=== PATIENT | female | born 1995 | race Caucasian/White ===

== ENCOUNTER → 2016-12-18 | Outpatient (CLI) | payer OTHER | END | disposition home or self-care (01) | LOC: C.LAB 20:56 | DX: Z02.83 Encounter for blood-alcohol and blood-drug test (principal) ==

== ENCOUNTER 2019-11-23 00:30 | Inpatient (IN) ==
[2019-11-23] MEDS ORDERED: PENICILLIN G POTASSIUM 3 MU in DEXTROSE 5% 100 ML IV PRN (00:52)
[2019-11-23] MEDS ORDERED: OXYTOCIN 30 UNITS/500 ML BAG IV PRN ×2 (00:52→08:47)
[2019-11-23] MEDS ORDERED: PENICILLIN G POTASSIUM 6 MU in DEXTROSE 5% 250 ML IV STA (00:52)
[2019-11-23] MEDS ORDERED: LACTATED RINGER'S 1,000 ML IV PRN (00:52)
[2019-11-23] MEDS ORDERED: LACTATED RINGER'S 1,000 ML IV ONE (00:59)
--- NOTE | 2019-11-23 01:10 | History & Physical Report ---
Date of Service November 23, 2019 Assessment & Plan (1) Spontaneous rupture of amniotic membranes: 24 yo AT 39.4 wks with SROM, in early labor, GBS+ VSS Afebrile doing well FHR reassuring Plan to admit, monitor, PCN for GBS expectant management (2) GBS (group B Streptococcus carrier), +RV culture, currently : History of Present Illness Primary Care Provider: [facility] Patient is a 24 yo at 39.4 wks who felt gush of LOF at 2345 last night, it has been leaking clear, no VB +FM'S She otherwise feels well, no complaints Mild ctxs no VB +FM's Her has been complicated by 1) drug use during , methamphetamine ( last use 3 weeks ago), Marijuana( last use 2 weeks ago), heroin use ( 1 month ago per patient), UDS on 11/01 was + for Methamphetamine and Cannabinoids UDS was negative on 11/15 ( has yvonne in half-way) 2) Medication exposure 3) HCV 4) GBS+ 5) Started as Class I obesity, lost 4.5 kg Allergies Allergy/AdvReac Type Severity Reaction Status Date / Time No Known Drug Allergies Allergy Unknown Verified 11/16/19 13:23 Home Medications Home Medications Medication Instructions Recorded Confirmed Type ferrous sulfate 325 mg PO QAM #30 tab 11/16/19 Rx vit-iron fum-folic ac 1 tab PO DAILY 11/16/19 11/16/19 History [ Vitamin] Patient History Surgical History Hx of tonsillectomy [place] teeth extracted Social History Preferred Language: Serbian Communication Ability: 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 Beliefs That Will Affect Care: None marital status: Single Current Living Situation Comment: [facility] Other Information That Helps Us Care for You: No Feels Safe at Home: Yes Safety Concerns: Feels Safe At This Time Smoking Status: Former smoker Tobacco Type: cigarettes ; Hx Alcohol Use: Yes Hx Substance Use: Yes substance use type: marijuana, heroin and methamphetamine Substance Use Type Other:: heroin 2 years ago Last Used Substance Other:: last used 1 month marijuana, heroin, and 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 History h/o chlamydia in the past, negative during No h/o HSV Review of Systems All systems reviewed & are unremarkable except as noted in HPI & below Physical Exam Constitutional: WD/WN, vitals as above well developed and well nourished Comfotable, NAD Genitourinary: no vaginal lesions, no adnexal mass OB Exam Abdomen: + vertex and + regular contractions Manual OB Exam: + cervical dilation 2 cm, + cervical effacement 70%, + station -2 and + amniotic fluid (Clear) OB Exam Monitor Tracing: + external uterine monitor used (ctxs q 2-3 min) and + category I Results & Data Vital Signs (Past 12 Hours) Vital Signs Temp Pulse Resp BP 11/23/19 00:42 37.0 C 72 18 106/66 11/23/19 00:38 72 106/66
[2019-11-23 01:50] LABS: Hematocrit (blood only) 32.8 % (37-47); Hemoglobin 11.5 g/dL (12.0-16.0); Mean Corpuscular Hemoglobin 29.8 pg (25-34); Mean Platelet Volume 11.2 fL (7.4-10.4); Platelet Count 336 K/uL (130-400); RDW Standard Deviation 42.5 fL (36.4-46.3); Red Blood Count 3.86 M/uL (4.2-5.4); White Blood Count 14.77 K/uL (4.8-10.8)
[2019-11-23 01:51] LABS: Mean Corpuscular Hgb Conc 35.1 g/dL (32-36)
[2019-11-23 02:19] LABS: Alanine Aminotransferase 10 U/L (12-78); Albumin Level 2.4 gm/dl (3.4-5.0); Aspartate Aminotransferase 10 U/L (15-37); BUN Creatinine Ratio 17.7 (10-20); Bilirubin Direct < 0.1 mg/dl (0-0.2); Blood Urea Nitrogen 10 mg/dl (7-18); Calcium 9.4 mg/dl (8.5-10.1); Carbon Dioxide 24 mmol/L (21-32); Chloride 108 mmol/L (98-107); Creatinine Clr Calc Pharmacy 148.6 ml/min; Est GFR (African American) 148.3; Est GFR (Non-African American) 127.9; Glucose 83 mg/dl (70-99); Potassium 3.9 mmol/L (3.5-5.1); Sodium 139 mmol/L (136-145)
[2019-11-23 02:21] LABS: Albumin Globulin Ratio 0.5 (0.9-2); Alkaline Phosphatase 149 U/L (45-117); Bilirubin,Total 0.3 mg/dl (0.2-1); Globulin 4.4 gm/dl (2.5-4.0); Total Protein 6.8 gm/dl (6.4-8.2)
[2019-11-23] MEDS ORDERED: ePHEDrine sulfate 50 MG/ML AMP ONE (04:43)
[2019-11-23] MEDS ORDERED: BUPIVACAINE 0.25% 30 ML VIAL ONE ×2 (04:43→05:52)
[2019-11-23] MEDS ORDERED: fentaNYL 2MCG/ML ROPIV 1.25MG/ML 100 ML BAG EPI ONE (04:44)
[2019-11-23] MEDS ORDERED: fentaNYL citrate 100 MCG/2 ML VIAL ONE (04:44)
--- NOTE | 2019-11-23 05:06 | Anesthesiology Consultation ---
Date of Service November 23, 2019 Assessment & Plan (1) Encounter for pre-operative examination: Chart Review Chart Review: Patient NOT seen in Pre Admission Testing and Acceptable Risk for Labor Epidural Consults Requested none ASA ASA3 Proposed Anesthesia Anesthesia Type: Labor Epidural Risk / Benefits Reviewed With: PT / POA / Parent / Guardian, Accepts Plan and Informed Consent Obtained History Height/Weight Height: 5 ft 4 in Weight: 75.296 kg Allergies Allergy/AdvReac Type Severity Reaction Status Date / Time No Known Drug Allergies Allergy Unknown Verified 11/16/19 13:23 Medications Home Medications Medication Instructions Recorded Confirmed Last Taken ferrous sulfate 325 mg PO QAM #30 tab 11/16/19 11/23/19 11/22/19 vit-iron fum-folic ac 1 tab PO DAILY 11/16/19 11/23/19 11/22/19 [ Vitamin] Active Medications Generic Name Dose Route Start Last Admin Trade Name Freq PRN Reason Stop Dose Admin Lactated Ringer's 1,000 mls @ 150 mls/hr 11/23/19 00:52 11/23/19 04:35 Lr IV 11/25/19 00:51 999 mls/hr .[id number] PRN Infusion L&D Protocol Protocol Penicillin G Potassium 3 mu/ 106 mls @ 100 mls/hr 11/23/19 00:52 11/23/19 05:26 Dextrose IV 12/03/19 00:51 100 mls/hr Q4H PRN Administration Give until delivery NPO Date Last Intake of Fluids: 11/23/19 Time Last Intake of Fluids: 05:04 Date Last Intake of Solids: 11/22/19 Time Last Intake of Solids: 20:00 Past Medical History Medical History (Updated 11/23/19 @ 05:04 by Lindsay Smith MD) No significant past medical history Exercise / Class Metabolic Activity II 4-5 Yardwork/Stairs/Walk up hill Past Surgical History Surgical History Hx of tonsillectomy [place] teeth extracted Past Anesthesia History No Hx of Anesthesia Complications History of PONV No Hx of PONV Social History Smoking Status: Former smoker tobacco type: cigarettes Hx Alcohol Use: Yes Hx Substance Use: Yes substance use type: marijuana, heroin and methamphetamine Substance Use Type Other:: heroin 2 years ago Last Used Substance Other:: last used 1 month marijuana, heroin, and methamphetamines Review of Systems Patient denies history of abnormal bleeding or bleeding disorder. Patient denies active use of anticoagulants other than low dose aspirin. Patient denies numbness, tingling or weakness in lower extremities. Physical Exam Vital Signs Last Vital Signs Temp 36.9 C 11/23/19 02:55 Pulse 89 11/23/19 04:55 Resp 18 11/23/19 00:42 BP 106/66 11/23/19 00:42 Pulse Ox 99 11/23/19 04:55 Constitutional not obese (Gravid) ENMT Mouth: no TMJ abnormality and oral opening not small Thyromental Distance: > or= 3.5 Finger Breadths Mallampati Class: II Neck normal visual inspection; neck extension not limited Respiratory normal respiratory effort Auscultation: lungs clear to auscultation bilaterally Cardiovascular Rate/Rhythm: regular rate and regular rhythm Heart Sounds: no murmur Neurologic moves all extremities Motor/Sensory: no sensory deficit Psychiatric Orientation: alert and oriented x 3 Testing Laboratory Results 11/23/19 01:27 11/23/19 01:27
[2019-11-23] MEDS ORDERED: NALOXONE HCL 0.4 MG/1 ML VIAL/CARP IV PRN (06:12)
[2019-11-23] MEDS ORDERED: ONDANSETRON INJ 2 MG/ML 2 ML VIAL IV PRN (06:12)
[2019-11-23] MEDS ORDERED: NALOXONE HCL 1 MG in SODIUM CHLORIDE 0.9% 1000ML 1,000 ML IV PRN (06:12)
[2019-11-23] MEDS ORDERED: fentaNYL 2MCG/ML ROPIV 1.25MG/ML 100 ML BAG EPI PRN (06:12)
[2019-11-23] MEDS ORDERED: DiphenhydrAMINE HCL 50 MG/ML VIAL IV PRN (06:12)
[2019-11-23] MEDS ORDERED: ePHEDrine sulfate 50 MG/ML AMP IV PRN (06:12)
--- NOTE | 2019-11-23 08:25 | Delivery Summary ---
Vaginal Delivery Summary Date of Service November 23, 2019 Vaginal Delivery Summary Delivery note live female BIRGIT over intact perineum with delayed cord clamping and Apgars 8/9 weight pending. Cord blood obtained followed by spontaneous delivery of intact perineum. No tears. EBL 100 ml. Final sponge and instrument count are correct. Mom and baby stable.
[2019-11-23] MEDS ORDERED: BENZOCAINE 20% AER SPR 82.5 GM CAN EXT PRN (08:47)
[2019-11-23] MEDS ORDERED: ACETAMINOPHEN 325 MG TAB PO PRN (08:47)
[2019-11-23] MEDS ORDERED: bisacodyL 10 MG SUPP PR PRN (08:47)
[2019-11-23] MEDS ORDERED: DIPHTHERIA/TETANUS/PERTUSSIS 0.5 ML SYR/VIAL IM ONE (08:47)
[2019-11-23] MEDS ORDERED: SUPERCREAM 0.870% 15 GM JAR EXT PRN (08:47)
[2019-11-23] MEDS ORDERED: HYDROCORTISONE ACETATE 25 MG SUPP PR PRN (08:47)
[2019-11-23] MEDS ORDERED: NON-FORMULARY MEDICATION (Prenatal Vit-Iron Fum-Folic Ac [Prenatal Vitamin] 1 TAB) PO SCH (09:00)
[2019-11-23] MEDS ORDERED: FERROUS SULFATE 325 MG TAB PO SCH (09:00)
--- NOTE | 2019-11-23 09:26 | Anesthesiology Progress Note ---
Date of Service November 23, 2019 Anesthesia Post Procedure Vital Signs Vital Signs: Temp Pulse Resp BP Pulse Ox 11/23/19 09:17 70 101/64 11/23/19 09:09 71 106/66 11/23/19 09:02 74 107/74 11/23/19 08:47 77 105/70 11/23/19 08:35 83 106/75 11/23/19 08:30 86 97 11/23/19 08:25 91 H 99 11/23/19 08:20 93 H 99 11/23/19 08:15 103 H 99 11/23/19 08:10 123 H 97 11/23/19 08:05 120 H 100 11/23/19 08:00 116 H 100 11/23/19 07:55 94 H 100 11/23/19 07:53 116 H 89 L 11/23/19 07:50 95 H 100 11/23/19 07:47 110 H 90 11/23/19 07:45 113 H 99 11/23/19 07:40 96 H 100 11/23/19 07:38 88 105/63 11/23/19 07:35 104 H 98 11/23/19 07:30 105 H 99 11/23/19 07:25 81 100 11/23/19 07:24 88 101/62 11/23/19 07:20 89 99 11/23/19 07:15 90 99 11/23/19 07:10 36.3 C L 87 16 99 11/23/19 07:08 85 102/64 11/23/19 07:05 107 H 99/61 L 99 11/23/19 07:00 97 H 99 11/23/19 06:55 96 H 100 11/23/19 06:54 86 103/69 11/23/19 06:50 99 H 99 11/23/19 06:45 92 H 99 11/23/19 06:40 92 H 99 11/23/19 06:35 84 102/58 L 99 11/23/19 06:31 93 H 99/55 L 11/23/19 06:30 93 H 100 11/23/19 06:27 98 H 98/68 L 11/23/19 06:25 92 H 98 11/23/19 06:21 85 104/68 11/23/19 06:20 81 99 11/23/19 06:15 95 H 97 11/23/19 06:13 93 H 94/62 L 11/23/19 06:12 96 H 86/59 L 11/23/19 06:10 100 H 98/63 L 98 11/23/19 06:07 97 H 101/58 L 11/23/19 06:05 79 98 11/23/19 06:04 106 H 97/62 L 11/23/19 06:02 86 115/63 11/23/19 06:00 101 H 99 11/23/19 05:59 103 H 102/64 11/23/19 05:58 87 110/66 11/23/19 05:55 97 H 98 11/23/19 05:50 98 H 99 11/23/19 05:47 107 H 114/66 11/23/19 05:45 87 127/79 99 11/23/19 05:40 86 103/74 98 11/23/19 05:38 100 H 105/73 11/23/19 05:36 85 117/77 11/23/19 05:35 93 H 98 11/23/19 05:34 96 H 110/74 11/23/19 05:32 91 H 109/74 11/23/19 05:31 88 113/76 11/23/19 05:30 90 99 11/23/19 05:28 94 H 109/75 11/23/19 05:26 89 113/73 11/23/19 05:25 86 114/69 99 11/23/19 05:22 101 H 119/76 11/23/19 05:20 101 H 113/77 98 11/23/19 05:19 93 H 115/80 11/23/19 05:15 102 H 98 11/23/19 05:10 106 H 99 11/23/19 05:05 89 100 11/23/19 05:03 36.5 C 11/23/19 05:00 91 H 100 11/23/19 04:57 87 94 11/23/19 04:55 89 99 11/23/19 04:50 90 100 11/23/19 02:55 36.9 C 11/23/19 00:42 37.0 C 72 18 106/66 11/23/19 00:38 72 106/66 Transfer of Care Handoff Completed per policy Notes Mental Status: alert / awake / arousable Patient Amnestic to Procedure: Yes Nausea / Vomiting: adequately controlled Pain: adequately controlled Airway Patency, RR, SpO2: stable & adequate BP & HR: stable & adequate Hydration State: stable & adequate Anesthetic Complications: no major complications apparent
[2019-11-23] MEDS: IBUPROFEN 600 MG TAB PO PRN ×2 (15:11→20:09)
[2019-11-23] MEDS: DOCUSATE SODIUM 100 MG CAP PO SCH (20:09)
[2019-11-24 06:05] LABS: Hematocrit (blood only) 31.9 % (37-47); Hemoglobin 11.1 g/dL (12.0-16.0); Mean Corpuscular Hemoglobin 29.9 pg (25-34); Mean Corpuscular Hgb Conc 34.8 g/dL (32-36); Mean Platelet Volume 10.9 fL (7.4-10.4); Platelet Count 323 K/uL (130-400); RDW Coefficient of Variation 14.2 % (11.5-14.5); RDW Standard Deviation 43.8 fL (36.4-46.3); Red Blood Count 3.71 M/uL (4.2-5.4); White Blood Count 16.85 K/uL (4.8-10.8)
--- NOTE | 2019-11-24 08:22 | Obstetrical Progress Note ---
Date of Service November 24, 2019 Assessment & Plan Admission and Anticipated Discharge Date Admission Date: November 23, 2019 Subjective Patient is seen and examined. She feels well, no complaints. Ambulating without dizziness Voiding without difficulty Tolerating regular diet with out N&V Bleeding is minimal No fever/ chills/ CP/ SOB/ N&V/ Leg pain Bottle feeding without problems Vital Signs Temp Pulse Pulse Resp BP BP Pulse Ox 11/24/19 04:15 36.6 C 75 20 98/66 L 11/23/19 23:54 36.7 C 81 20 100/63 11/23/19 20:10 36.5 C 63 18 103/68 11/23/19 15:05 36.7 C 64 18 100/63 11/23/19 12:30 36.8 C 61 18 106/65 98 11/23/19 10:26 82 110/64 11/23/19 10:11 75 104/67 11/23/19 10:02 88 112/80 11/23/19 09:47 90 112/78 11/23/19 09:33 89 107/65 11/23/19 09:17 70 101/64 11/23/19 09:09 71 106/66 11/23/19 09:02 74 107/74 11/23/19 08:47 77 105/70 11/23/19 08:35 83 106/75 11/23/19 08:30 86 97 11/23/19 08:25 91 H 99 Lab Results 11/23/19 11/23/19 11/23/19 Range/Units 01:15 01:27 01:27 WBC 14.77 H (4.8-10.8) K/uL RBC 3.86 L (4.2-5.4) M/uL Hgb 11.5 L (12.0-16.0) g/dL Hct 32.8 L (37-47) % MCV 85.0 (80-100) fL MCH 29.8 (25-34) pg MCHC 35.1 (32-36) g/dL RDW Std Deviation 42.5 (36.4-46.3) fL RDW Coeff of Anabel 14.0 (11.5-14.5) % Plt Count 336 (130-400) K/uL MPV 11.2 H (7.4-10.4) fL Sodium 139 (136-145) mmol/L Potassium 3.9 (3.5-5.1) mmol/L Chloride 108 H (98-107) mmol/L Carbon Dioxide 24 (21-32) mmol/L Anion Gap 7.0 (3-11) BUN 10 (7-18) mg/dl Creatinine 0.57 L (0.6-1.2) mg/dl Est Cr Clr Drug Dosing 148.6 ml/min Est GFR ( Amer) 148.3 Est GFR (Non-Af Amer) 127.9 BUN/Creatinine Ratio 17.7 (10-20) Glucose 83 (70-99) mg/dl Calcium 9.4 (8.5-10.1) mg/dl Total Bilirubin 0.3 (0.2-1) mg/dl Direct Bilirubin < 0.1 (0-0.2) mg/dl AST 10 L (15-37) U/L ALT 10 L (12-78) U/L Alkaline Phosphatase 149 H (45-117) U/L Total Protein 6.8 (6.4-8.2) gm/dl Albumin 2.4 L (3.4-5.0) gm/dl Globulin 4.4 H (2.5-4.0) gm/dl Albumin/Globulin Ratio 0.5 L (0.9-2) Nasal Screen MRSA (PCR) Negative (Negative) Hepatitis C Antibody (Neg) 11/23/19 11/24/19 Range/Units 01:27 05:28 WBC 16.85 H (4.8-10.8) K/uL RBC 3.71 L (4.2-5.4) M/uL Hgb 11.1 L (12.0-16.0) g/dL Hct 31.9 L (37-47) % MCV 86.0 (80-100) fL MCH 29.9 (25-34) pg MCHC 34.8 (32-36) g/dL RDW Std Deviation 43.8 (36.4-46.3) fL RDW Coeff of Anabel 14.2 (11.5-14.5) % Plt Count 323 (130-400) K/uL MPV 10.9 H (7.4-10.4) fL Sodium (136-145) mmol/L Potassium (3.5-5.1) mmol/L Chloride (98-107) mmol/L Carbon Dioxide (21-32) mmol/L Anion Gap (3-11) BUN (7-18) mg/dl Creatinine (0.6-1.2) mg/dl Est Cr Clr Drug Dosing ml/min Est GFR ( Amer) Est GFR (Non-Af Amer) BUN/Creatinine Ratio (10-20) Glucose (70-99) mg/dl Calcium (8.5-10.1) mg/dl Total Bilirubin (0.2-1) mg/dl Direct Bilirubin (0-0.2) mg/dl AST (15-37) U/L ALT (12-78) U/L Alkaline Phosphatase (45-117) U/L Total Protein (6.4-8.2) gm/dl Albumin (3.4-5.0) gm/dl Globulin (2.5-4.0) gm/dl Albumin/Globulin Ratio (0.9-2) Nasal Screen MRSA (PCR) (Negative) Hepatitis C Antibody Prelim Pos A (Neg) PE: General: Alert, orientedx3, NAD Abd: soft, NT, fundus firm, below Umbilicus Perineum intact, Lochia rubra minimal Ext; NT, no edema AP: 24 yo s/p , ppd# 1 VSS Afebrile doing well Continue routine care All questions were answered D/C home tomorrow Results & Data ([facility]) Vital Signs (Past 12 Hours) Vital Signs Temp Pulse Resp BP 11/24/19 04:15 36.6 C 75 20 98/66 L 11/23/19 23:54 36.7 C 81 20 100/63
[2019-11-24] MEDS: DOCUSATE SODIUM 100 MG CAP PO SCH ×2 (09:03→20:31)
[2019-11-24] MEDS: PRENATAL VITAMIN 1 TAB PO SCH (09:03)
[2019-11-24] MEDS: IBUPROFEN 600 MG TAB PO PRN ×3 (09:03→23:43)
[2019-11-24] MEDS ORDERED: bisacodyL 5 MG TABEC PO SCH (20:00)
[2019-11-25] MEDS: DOCUSATE SODIUM 100 MG CAP PO SCH (09:07)
[2019-11-25] MEDS: IBUPROFEN 600 MG TAB PO PRN ×2 (09:07→20:03)
[2019-11-25] MEDS: PRENATAL VITAMIN 1 TAB PO SCH (09:07)
--- NOTE | 2019-11-25 09:55 | Obstetrical Progress Note ---
Date of Service November 25, 2019 Assessment & Plan Admission and Anticipated Discharge Date Admission Date: November 23, 2019 Physical Exam Physical Exam: abdomen soft and non tender no calf tenderness ambulating well vaginal bleeding scant hgb 11.1 Results & Data ([facility]) Vital Signs (Past 12 Hours) Vital Signs Temp Pulse Resp BP 11/24/19 23:40 36.5 C 69 18 105/63
[2019-11-25 10:27] LABS: Basophils # (auto) 0.06 K/uL (0-0.2); Basophils % (auto) 0.4 %; Eosinophils # (auto) 0.34 K/uL (0-0.5); Hematocrit (blood only) 35.1 % (37-47); Immature Granulocytes # (auto) 0.07 K/uL (0.00-0.02); Immature Granulocytes % (auto) 0.4 %; Lymphocytes % (auto) 16.2 %; Mean Corpuscular Hemoglobin 29.9 pg (25-34); Mean Corpuscular Hgb Conc 34.2 g/dL (32-36); Mean Corpuscular Volume 87.5 fL (80-100); Mean Platelet Volume 10.2 fL (7.4-10.4); Monocytes # (auto) 1.03 K/uL (0.11-0.59); Monocytes % (auto) 6.2 %; Neutrophils # (auto) 12.45 K/uL (1.4-6.5); Neutrophils % (auto) 74.8 %; Platelet Count 368 K/uL (130-400); RDW Coefficient of Variation 14.8 % (11.5-14.5); RDW Standard Deviation 46.6 fL (36.4-46.3); Red Blood Count 4.01 M/uL (4.2-5.4); White Blood Count 16.65 K/uL (4.8-10.8)
== END 2019-11-25 20:20 | disposition home or self-care (01) | DRG 806 ==
LOC: OPB 00:30 → 4S1 00:32 → 4S2 11:41